=== PATIENT | male | born 1940 | race Caucasian/White ===

== ENCOUNTER → 2017-09-23 | Outpatient (CLI) | payer MEDICARE, OTHER ==
[~2017-09-23] MED LIST: AMIT25TA PO; AMLO1CAP6 PO; GABA300C10 PO; PANT40TA5 PO; SIMV40TA3 PO; SUMA100T4 PO; potassium chloride PO
[2017-09-23 13:37] LABS: BASOPHILS # (AUTO) 0.02 x10^3/uL (0-0.1); BASOPHILS % (AUTO) 0 % (0-1); EOSINOPHILS # (AUTO) 0.17 x10^3/uL (0-0.4); EOSINOPHILS % (AUTO) 2 % (1-7); LYMPHOCYTES # (AUTO) 1.83 x10^3/uL (1-3.4); LYMPHOCYTES % (AUTO) 23 % (22-44); MD NO; MEAN CORPUSCULAR HEMOGLOBIN 31.4 pg (27.5-34.5); MEAN CORPUSCULAR HGB CONC 33.5 g/dL (33.2-36.2); MEAN CORPUSCULAR VOLUME 93.7 fL (81-97); MEAN PLATELET VOLUME 8.5 fL (7.4-10.4); MONOCYTES # (AUTO) 0.73 x10^3/uL (0.2-0.8); MONOCYTES % (AUTO) 9 % (2-9); NEUTROPHILS # (AUTO) 5.35 x10^3/uL (1.8-6.8); NEUTROPHILS % (AUTO) 66 % (42-75); PLATELET COUNT 231 x10^3/uL (130-400); RED BLOOD COUNT 5.07 x10^6/uL (4.38-5.82)
[2017-09-23 13:43] LABS: INTERNATIONAL NORMALIZED RATIO 0.93 (0.93-1.1); PROTHROMBIN TIME 9.7 Seconds (9.6-11.5)
[2017-09-23 13:47] LABS: MICROSCOPIC AUTO
[2017-09-23 13:47] LABS: ALBUMIN 4.1 g/dL (3.4-5.0); ANION GAP 6 mmol/L (5-15); CALCIUM 9.8 mg/dL (8.5-10.1); CHLORIDE 106 mmol/L (98-107)
[2017-09-23 13:50] LABS: ALANINE AMINOTRANSFERASE 33 U/L (12-78); ALKALINE PHOSPHATASE 93 U/L (45-117); BILIRUBIN,TOTAL 0.6 mg/dL (0.2-1.0); CREATININE 1.15 mg/dL (0.7-1.3); TOTAL PROTEIN 8.2 g/dL (6.4-8.2)
[2017-09-23 13:54] LABS: CULTURE INDICATED? NO
== END ==
LOC: STAR 12:16
PROVIDERS: ATTEND Orthopaedic Surgery Orthopaedic Surgery of the Spine
DX: Z01.818 Encounter for other preprocedural examination (principal); R94.31 Abnormal electrocardiogram [ECG] [EKG]; J84.10 Pulmonary fibrosis, unspecified
CPT/HCPCS: 36415; 71046; 80053; 81001; 85025; 85610; 85730; 93005

== ENCOUNTER 2017-09-30 05:37 | Observation (INO) | payer MEDICARE, OTHER ==
[~2017-09-30] VITALS: Ht 172.7 cm; Wt 93.1 kg
[2017-09-30] MEDS ORDERED: LACTATED RINGERS 1,000 ML IV SCH (06:07)
[2017-09-30] MEDS ORDERED: BUPIVACAINE/PF 0.25% ONE (06:13)
[2017-09-30] MEDS ORDERED: LIDOCAINE/PF 0.5% ,50ML ONE (06:14)
[2017-09-30] MEDS ORDERED: EPINEPHRINE 1 MG/ML, 1ML ONE (06:14)
[2017-09-30] MEDS ORDERED: THROMBIN 5,000 UNIT VIAL TP ONE (06:14)
[2017-09-30] MEDS ORDERED: VANCOMYCIN 1,000 MG ONE (06:14)
[2017-09-30 06:32] VITALS: BP 110/77
[2017-09-30] MEDS ORDERED: FENTANYL PF 100 MCG/2ML ONE (06:54)
[2017-09-30] MEDS ORDERED: MIDAZOLAM 1 MG/ML, 2ML ONE (06:54)
[2017-09-30] MEDS ORDERED: GABAPENTIN 300 MG CAPSULE PO ONE (07:00)
[2017-09-30] MEDS ORDERED: FAMOTIDINE 20 MG TABLET PO ONE (07:00)
[2017-09-30] MEDS ORDERED: ONDANSETRON ODT 8 MG PO ONE (07:00)
[2017-09-30] MEDS ORDERED: DIAZEPAM 5 MG TABLET PO ONE (07:00)
[2017-09-30] MEDS ORDERED: ACETAMINOPHEN 500 MG TABLET PO ONE (07:00)
[2017-09-30] MEDS ORDERED: OXYcodone IR 5MG TABLET PO ONE (07:00)
[2017-09-30] MEDS ORDERED: FENTANYL PF 100 MCG/2ML IV PRN (09:00)
[2017-09-30] MEDS ORDERED: hydrALAzine 20 MG/ML, 1ML IV PRN (09:00)
[2017-09-30] MEDS ORDERED: LABETALOL 5MG/ML, 20ML IV PRN (09:00)
[2017-09-30] MEDS ORDERED: HYDROcodone/APAP 7.5-325MG/15ML UDC PO PRN (09:00)
[2017-09-30] MEDS ORDERED: EPHEDRINE 50 MG/ML, 1ML IVPush PRN (09:00)
[2017-09-30] MEDS ORDERED: MORPHINE SULFATE 4 MG/ML, 1ML IVPush PRN ×2 (09:00→19:30)
[2017-09-30] MEDS ORDERED: MEPERIDINE/PF 25MG/0.5ML IVPush PRN (09:00)
[2017-09-30] MEDS ORDERED: PROMETHAZINE 25 MG/ML, 1ML IV PRN (09:00)
[2017-09-30] MEDS ORDERED: ALBUTEROL SULFATE 2.5 MG/3 ML NPPB PRN (09:00)
[2017-09-30] MEDS ORDERED: DIAZEPAM 5 MG/ML, 2ML IVPush PRN (09:00)
[2017-09-30] MEDS ORDERED: OXYcodone 5 MG/5 ML ORAL.SOL UDC PO PRN (09:00)
[2017-09-30] MEDS ORDERED: MIDAZOLAM 1 MG/ML, 2ML IV PRN (09:00)
[2017-09-30] MEDS ORDERED: ONDANSETRON ODT 8 MG PO PRN (09:00)
[2017-09-30] MEDS ORDERED: CEFAZOLIN 1,000 MG ONE (09:15)
[2017-09-30] MEDS ORDERED: SUCCINYLCHOLINE 20 MG/ML, 10ML ONE (09:15)
[2017-09-30] MEDS ORDERED: PROPOFOL 10 MG/ML, 20ML ONE (09:15)
[2017-09-30] MEDS ORDERED: NEOSTIGMINE 1 MG/ML, 10ML ONE (09:15)
[2017-09-30] MEDS ORDERED: GLYCOPYRROLATE 0.2MG/1ML, 5ML ONE (09:15)
[2017-09-30] MEDS ORDERED: DEXAMETHASONE 4 MG/ML, 1ML ONE (09:15)
[2017-09-30] MEDS ORDERED: ROCURONIUM 10 MG/ML,10ML ONE (16:07)
[2017-09-30] MEDS: CEPHALEXIN 500 MG CAPSULE PO SCH (19:29)
[2017-09-30] MEDS ORDERED: ONDANSETRON 2MG/ML, 2ML IVPush PRN (19:30)
[2017-09-30] MEDS ORDERED: SUMATRIPTAN 100 MG TABLET PO PRN (20:30)
[2017-09-30] MEDS ORDERED: MAGNESIUM HYDROXIDE 8%, 30ML UDC PO ONE (21:00)
[2017-09-30] MEDS ORDERED: AMITRIPTYLINE 25 MG TABLET PO SCH (21:00)
[2017-09-30] MEDS ORDERED: SIMVASTATIN 40 MG TABLET PO SCH (21:00)
[2017-09-30 23:12] VITALS: BP 147/81
[2017-09-30] MEDS: GABAPENTIN 300 MG CAPSULE PO SCH (23:36)
[2017-09-30] MEDS: HYDROcodone/APAP 10/325 MG TABLET PO PRN (23:44)
[2017-09-30 23:59] VITALS: BP 107/67
[2017-10-01 01:52] VITALS: BP 114/68
[2017-10-01] MEDS: HYDROcodone/APAP 10/325 MG TABLET PO PRN (02:16)
[2017-10-01] MEDS: CEPHALEXIN 500 MG CAPSULE PO SCH ×2 (02:16→08:22)
[2017-10-01] MEDS ORDERED: PANTOPROZOLE 40MG TABLET PO SCH (07:30)
[2017-10-01 07:47] VITALS: BP 132/73
[2017-10-01] MEDS: GABAPENTIN 300 MG CAPSULE PO SCH (08:21)
[2017-10-01] MEDS ORDERED: AMLODIPINE 5 MG TABLET PO SCH (09:00)
[2017-10-01] MEDS ORDERED: BENAZEPRIL 20 MG TABLET PO SCH (09:00)
[2017-10-01] MEDS ORDERED: HYDROcodone/APAP 5/325 TABLET PO PRN ×2 (10:30→12:00)
[2017-10-01] MEDS ORDERED: MAGNESIUM HYDROXIDE 8%, 30ML UDC PO ONE (10:30)
[2017-10-01] MEDS ORDERED: INSTRUCTION SEE COMMENTS XX PRN (10:30)
[2017-10-01] MEDS ORDERED: CARBIDOPA/LEVODOPA 25 MG/100 MG TABLET PO SCH (10:30)
[2017-10-01] MEDS ORDERED: HYDROcodone/APAP 5/325 TABLET ONE (11:42)
[2017-10-01 12:00] VITALS: BP 123/74
[2017-10-01] MEDS ORDERED: HYDR-3240 PO (12:44)
[2017-10-01] MEDS ORDERED: CEPH-368 PO (12:44)
== END 2017-10-01 13:21 | disposition home or self-care (01) ==
LOC: OUT 05:37 → ORIP 18:54 → 4NOR 20:05 → DCLOUNGE 10-01 12:57
PROVIDERS: ADMIT Orthopaedic Surgery Orthopaedic Surgery of the Spine; ATTEND Orthopaedic Surgery Orthopaedic Surgery of the Spine
DX: M48.061 Spinal stenosis, lumbar region without neurogenic claudication (principal); M54.16 Radiculopathy, lumbar region; R09.02 Hypoxemia; G20 Parkinson's disease
CPT/HCPCS: 63047; 63048; 72100; G0378; J0171; J0330; J0690; J1100; J2001; J2250; J2704; J2710; J3010; J3370; J3490; J7120; Q0162